=== PATIENT | female | born 1995 | race Caucasian/White ===

== ENCOUNTER 2024-05-27 11:09 | Outpatient (CLI) | payer OTHER, SELFPAY | END 2024-05-27 11:10 | disposition home or self-care (01) | PROVIDERS: PCP Emergency Medicine; Visit Provider Family Medicine | DX: Z13.228 Encounter for screening for other metabolic disorders (principal); Z13.220 Encounter for screening for lipoid disorders | CPT/HCPCS: 80048; 80061 ==